=== PATIENT | male | born 1950 | race Hispanic/Latino ===

== ENCOUNTER 2020-05-06 14:24 | Emergency (ER) | payer MEDICARE, OTHER ==
--- NOTE | 2020-05-06 15:16 | Emergency Department Report ---
Blank Doc - Documentation Documentation: 70-year-old male that presents with left ankle pain and swelling. This initial assessment/diagnostic orders/clinical plan/treatment(s) is/are subject to change based on patient's health status, clinical progression and re- assessment by fellow clinical providers in the ED. Further treatment and workup at subsequent clinical providers discretion. Patient/guardians urged not to elope from the ED as their condition may be serious if not clinically assessed and managed. Initial orders include: 1- Patient sent to [facility] for further evaluation and treatment 2- xrays
--- NOTE | 2020-05-06 16:28 | XRay Report ---
Left ankle 3 views INDICATION: Left ankle pain following injury IMPRESSION: Severe swelling of the left ankle noted. No underlying fracture or subluxation is identif ied. There is some degenerative changes involving the midfoot. Signer Name: Josemanuel Hermosillo MD Signed: 05/06/2020 4:24 PM Workstation Name: [id number]
[2020-05-07] MEDS ORDERED: ACETAMINOPHEN 500 MG TAB PO ONE (01:29)
[2020-05-07] MEDS ORDERED: predniSONE 20 MG TAB PO ONE (01:29)
[2020-05-07] MEDS ORDERED: IBUPROFEN 800 MG TAB PO ONE (01:29)
[2020-05-07] MEDS ORDERED: COLCHICINE 0.6 MG CAP PO ONE (01:29)
--- NOTE | 2020-05-07 01:35 | Emergency Department Report ---
ED Extremity Problem HPI - General Chief complaint: Extremity Problem,Nontraumatic Stated complaint: LFT FOOT SWELLING/PAIN Time Seen by Provider: 05/06/20 15:16 Source: patient Mode of arrival: Ambulatory Limitations: No Limitations - History of Present Illness Initial comments: Patient is a 70-year-old white male with a history of hypertension and COPD who presents to the ED with complaint of acute onset persistent severe nontraumatic left ankle pain and swelling for the last 2 days. Patient states that the swelling got worse in the last 12 hours such that he was unable to bear weight on the left ankle because of pain and swelling. Patient denies shortness of breath, dizziness, syncope, traumatic injury, heavy lifting, fall, low back pain, chest pain or fever or chills, numbness and tingling or weakness of left leg. MD Complaint: extremity pain (left ankle), extremity swelling (left ankle pain and swelling), joint swelling (left ankle swelling and pain), joint paint (left ankle pain and swelling) -: Sudden, days(s) (2) Location: left, lower extremity (ankle) History of Same: No -: Yes arthralgia, No fever, No associated dyspnea, No associated chest pain Radiation: none Severity scale (0 -10): 7 Quality: aching, sharp, constant Consistency: constant Improves with: nothing Worsens with: weight bearing, walking, exertion, palpation Associated Symptoms: denies other symptoms, arthralgias (Left ankle pain and swelling). denies: chest pain, shortness of breath, fever, myalgias - Related Data Previous Rx's Medication Instructions Recorded Last Taken Type Colchicine 0.6 mg PO Q8H #15 capsule 05/07/20 Unknown Rx Ibuprofen [Motrin] 800 mg PO Q8HR PRN #30 tablet 05/07/20 Unknown Rx predniSONE [Deltasone] 60 mg PO QDAY #15 tab 05/07/20 Unknown Rx traMADoL [Ultram] 50 mg PO Q6HR PRN #12 tablet 05/07/20 Unknown Rx Allergies Allergy/AdvReac Type Severity Reaction Status Date / Time Penicillins Allergy Unknown Verified 05/06/20 15:14 ED Review of Systems ROS: Stated complaint: LFT FOOT SWELLING/PAIN Other details as noted in HPI Constitutional: denies: chills, fever Eyes: denies: eye pain, eye discharge, vision change ENT: denies: ear pain, throat pain Respiratory: denies: cough, shortness of breath, wheezing Cardiovascular: denies: chest pain, palpitations Endocrine: no symptoms reported Gastrointestinal: denies: abdominal pain, nausea, diarrhea Genitourinary: denies: urgency, dysuria Musculoskeletal: joint swelling (left ankle and swelling), arthralgia (left an kle and swelling). denies: back pain Skin: denies: rash, lesions Neurological: denies: headache, weakness, paresthesias Psychiatric: denies: anxiety, depression Hematological/Lymphatic: denies: easy bleeding, easy bruising ED Past Medical Hx - Past Medical History Previous Medical History?: Yes Hx Hypertension: Yes Hx COPD: Yes - Surgical History Past Surgical History?: No - Medications Home Medications: Home Medications Medication Instructions Recorded Confirmed Last Taken Type Colchicine 0.6 mg PO Q8H #15 capsule 05/07/20 Unknown Rx Ibuprofen [Motrin] 800 mg PO Q8HR PRN #30 tablet 05/07/20 Unknown Rx predniSONE [Deltasone] 60 mg PO QDAY #15 tab 05/07/20 Unknown Rx traMADoL [Ultram] 50 mg PO Q6HR PRN #12 tablet 05/07/20 Unknown Rx ED Physical Exam - General Limitations: No Limitations General appearance: alert, in no apparent distress - Head Head exam: Present: atraumatic, normocephalic, normal inspection - Eye Eye exam: Present: normal appearance, PERRL, EOMI Pupils: Present: normal accommodation - ENT ENT exam: Present: normal exam, normal orophraynx, mucous membranes moist, TM's normal bilaterally, normal external ear exam - Neck Neck exam: Present: normal inspection, full ROM - Respiratory Respiratory exam: Present: normal lung sounds bilaterally. Absent: respiratory distress, wheezes, rales, rhonchi, chest wall tenderness, accessory muscle use, decreased breath sounds, prolonged expiratory - Cardiovascular Cardiovascular Exam: Present: regular rate, normal rhythm, normal heart sounds. Absent: systolic murmur, diastolic murmur, rubs, gallop - GI/Abdominal GI/Abdominal exam: Present: soft, normal bowel sounds. Absent: tenderness, guarding, hyperactive bowel sounds, hypoactive bowel sounds, organomegaly - Extremities Exam Extremities exam: Present: normal inspection, full ROM, tenderness (Palpable left ankle tenderness and swelling), normal capillary refill, joint swelling (left ankle swelling). Absent: calf tenderness - Back Exam Back exam: Present: normal inspection, full ROM. Absent: tenderness, CVA tenderness (R), CVA tenderness (L), muscle spasm, paraspinal tenderness, vertebral tenderness - Neurological Exam Neurological exam: Present: alert, oriented X3, CN II-XII intact, normal gait, reflexes normal - Psychiatric Psychiatric exam: Present: normal affect, normal mood - Skin Skin exam: Present: warm, dry, intact, normal color. Absent: rash ED Course Vital Signs 05/06/20 05/07/20 15:18 02:15 Temperature 98.5 F Pulse Rate 74 68 Respiratory 18 16 Rate Blood Pressure 147/68 [Right] O2 Sat by Pulse 96 97 Oximetry ED Medical Decision Making - Radiology Data Radiology results: report reviewed, image reviewed Findings [facility] [address] [place] [address] XRay Report Signed Patient: APRIL SMITH MR#: [id number] : 1950 Acct:[id number] Age/Sex: 70 / M ADM Date: 05/06/20 Loc: ED Attending Dr: Ordering Physician: MARIA A PEÑA NP Date of Service: 05/06/20 Procedure(s): XR ankle 3+V LT Accession Number(s): [id number] cc: MARIA A PEÑA NP Fluoro Time In Minutes: Left ankle 3 views INDICATION: Left ankle pain following injury IMPRESSION: Severe swelling of the left ankle noted. No underlying fracture or subluxation is identified. There is some degenerative changes involving the midfoot. Signer Name: Josemanuel Hermosillo MD Signed: 05/06/2020 4:24 PM Workstation Name: [id number] Transcribed By: Dictated By: Josemanuel Hermosillo MD Electronically Authenticated By: Josemanuel Hermosillo MD Signed Date/Time: 05/06/201623 DD/ 22 TD/TT: - Medical Decision Making This is a 70-year-old white male with a history of hypertension and COPD who presents to the ED with complaint of acute onset persistent severe nontraumatic left ankle pain and swelling for the last 2 days. Patient states that the swelling got worse in the last 12 hours such that he was unable to bear weight on the left ankle because of pain and swelling. In the ED, patient is alert and oriented x3 and is not in distress. Left ankle x-ray shows no acute fractures or subluxation but soft tissue swelling and degenerative joint disease in the midfoot and ankle joint. Uric acid test was positive. Patient was therefore treated for acute gouty arthropathy in the ED with oral prednisone and pain medications, and the left ankle was splinted with Valeriy wrap and the patient was discharged home on pain medications and advised to follow-up with his primary care physician in 5 to 7 days for reevaluation or return to the ED immediately if symptoms get worse. - Differential Diagnosis Gout; Osteoarthritis; Muscle strain; ankle fracture; ankle sprain Critical care attestation.: If time is entered above; I have spent that time in minutes in the direct care of this critically ill patient, excluding procedure time. ED Disposition Clinical Impression: Osteoarthritis of left ankle Qualifiers: Osteoarthritis type: primary Qualified Code(s): M19.072 - Primary osteoarthritis, left ankle and foot Acute gout of left ankle Qualifiers: Gout etiology: unspecified cause Qualified Code(s): M10.9 - Gout, unspecified Disposition: TO HOME OR SELFCARE Is pt being admited?: No Does the pt Need Aspirin: No Condition: Stable Instructions: Osteoarthritis (ED), Acute Gouty Arthritis (ED) Additional Instructions: The x-ray of your left ankle shows soft tissue swelling and degenerative joint disease consistent with osteoarthritis. Lab test results showed a positive test for gout flare. Therefore take medication with food, drink plenty of fluids and follow-up with your primary care physician in 7 to 10 days for reevaluation. Return to the ED immediately if symptoms get worse. Prescriptions: Colchicine 0.6 mg PO Q8H #15 capsule predniSONE [Deltasone] 60 mg PO QDAY #15 tab Ibuprofen [Motrin] 800 mg PO Q8HR PRN #30 tablet PRN Reason: Pain , Severe (7-10) traMADoL [Ultram] 50 mg PO Q6HR PRN #12 tablet PRN Reason: Pain Referrals: [facility] [Primary Care Provider] - 3-5 Days Time of Disposition: 01:33 Print Language: UKRAINIAN
[2020-05-07 02:41] VITALS: BP 147/68
== END 2020-05-07 02:15 | disposition home or self-care (01) ==
LOC: ED 14:24
DX: M19.072 Primary osteoarthritis, left ankle and foot (principal); M10.9 Gout, unspecified; I10 Essential (primary) hypertension; J44.9 Chronic obstructive pulmonary disease, unspecified; Z79.1 Long term (current) use of non-steroidal anti-inflammatories (NSAID); Z79.899 Other long term (current) drug therapy; Z88.0 Allergy status to penicillin
CPT/HCPCS: 36415; 73610; 84550; 99284; J7512